=== PATIENT | male | born 1980 | race Caucasian/White ===

== ENCOUNTER → 2019-03-17 | Outpatient (CLI) | payer OTHER ==
[~2019-03-17] MED LIST: NO HOME MEDICATIONS
[2019-03-17 09:25] LABS: HEMATOCRIT 48.1 % (42.0-52.0); HEMOGLOBIN 16.8 g/dl (13.5-18.0); MEAN CELL VOLUME 92 fl (80.0-100.0); MEAN CORPUSCULAR HEMOGLOBIN 32 pg (27.0-31.0); MEAN CORPUSCULAR HGB CONC 35 g/dl (33.0-37.0); MEAN PLATELET VOLUME 11.3 fl (7.4-10.4); PLATELET COUNT 186 K/mm3 (130-400); RED BLOOD COUNT 5.24 M/mm3 (4.20-5.60); REDCELL DISTRIBUTION WIDTH-CV 12.5 % (11.5-14.5)
[2019-03-17 09:44] LABS: ALBUMIN 4.8 gm/dL (3.5-5.0); BILIRUBIN,TOTAL 0.9 mg/dL (0.0-1.0); CALCIUM 9.5 mg/dL (8.4-10.2); CHOLESTEROL RISK RATIO 3.8; CREATININE, serum 0.7 (0.66-1.25); POTASSIUM 5.1 mmol/L (3.4-5.0); TOTAL PROTEIN 8.1 gm/dL (6.4-8.2)
[2019-03-17 10:05] LABS: THYROXINE (T4)-TOTAL 9.4 ug/dL (5.5-11.0)
[2019-03-17 10:52] LABS: PSA-TOTAL 0.54 ng/mL (0-4)
[2019-03-17 11:34] LABS: THYROID STIMULATING HORMONE 1.02 uIU/mL (0.465-4.680)
[2019-03-17 23:43] LABS: T3 FREE (TRI-IODOTHYRONINE) 3.4 pg/mL (1.7-3.7)
== END ==
LOC: COL.LAB 08:52
PROVIDERS: Emergency Medicine
DX: E34.9 Endocrine disorder, unspecified (principal); E78.5 Hyperlipidemia, unspecified; E07.9 Disorder of thyroid, unspecified
CPT/HCPCS: G0103

== ENCOUNTER 2023-04-29 23:51 | Emergency (ER) | payer SELFPAY ==
[~2023-04-29] VITALS: Ht 172.7 cm; Wt 86.4 kg
[2023-04-30] MEDS ORDERED: NORVASC 5MG5 MG/TAB PO (00:01)
[2023-04-30] MEDS ORDERED: LEXAPRO 10MG10 MG PO (00:02)
[2023-04-30 01:30] VITALS: BP 117/69; PULSE 67; TEMP 97.7
== END 2023-04-30 01:30 | disposition home or self-care (01) ==
LOC: COL.ER 23:51
DX: L50.9 Urticaria, unspecified (principal)
CPT/HCPCS: J1200; J2930